=== PATIENT | male | born 1975 | race Caucasian/White ===

== ENCOUNTER 2016-12-12 17:53 | Emergency (ER) | payer BC ==
[2016-12-12 18:10] VITALS: TEMP 98.2
--- NOTE | 2016-12-12 19:32 | EDPHY ---
HPI/HX/ROS/PE/MDM Narrative: CHIEF COMPLAINT: Dyspnea HPI: The patient is a 41 y/o male complaining of a resolved episode of dyspnea and throat tightness while hiking today. He flew into [place] from [place] today and subsequently went hiking. Part way into his hike his "airway felt restricted." He tried to keep hiking, but his symptoms worsened and forced him to sit down. He felt like his throat was tight and he was unable to catch his breath. He denies any associated chest pain or other symptoms. All his symptoms resolved with rest and he feels normal upon assessment here. He has no prior history of asthma or blood clots, but does fly frequently for work. REVIEW OF SYSTEMS: Aside from elements discussed in the HPI, a comprehensive 10-point review of systems was reviewed and is negative. PMH: Sinus surgery September 2016 SOCIAL HISTORY: Flies regularly. Employed. Lives in [place]. PHYSICAL EXAM: General:Patient is alert, in no acute distress. ENT:Eyes are normal to inspection. ENT inspection normal. Neck: Normal inspection. Full range of motion. Respiratory:No respiratory distress. Breath sounds normal bilaterally. Cardiovascular: Regular rate and rhythm. Strong peripheral pulses. Normal cap refill. Abdomen:The abdomen is nontender to palpation. There are no peritoneal signs. Back: Normal to inspection. No tenderness to palpation. Skin: Normal color. No rash. Warm and dry. Extremities: Normal appearance. Full range of motion. Neuro: Oriented x3. Normal motor function. Normal sensory function. ED Course: Chest x-ray: negative for acute process. Patient has a normal exam and chest x-ray. He will be discharged with an inhaler and referral to his PCP for follow up upon his return home. MDM: This is a healthy male who reports SOB and wheezing while exercising earlier today. His symptoms have all resolved and there is no objective abnormality on exam whatsoever. He is not hypoxic. I discussed potential etiologies and workup with the patient - he would like to decline further imaging or treatment for now, and will try and an inhaler for what sounds most like exercise-induced asthma. He understands that diagnoses such as PE, ACS are possible and cannot be ruled out without further testing. - Data Points Imaging: Discussed imaging studies w/ call or contact centre manager Radiologist, I viewed and interpreted images myself General Time Seen by Provider: 12/12/16 19:09 Initial Vital Signs: Initial Vital Signs Temperature (C) 36.8 C 12/12/16 18:05 Heart Rate 67 12/12/16 18:05 Respiratory Rate 15 12/12/16 18:05 Blood Pressure 139/89 H 12/12/16 18:05 O2 Sat (%) 96 12/12/16 18:05 O2 Delivery Mode Room Air Allergies/Adverse Reactions: No Known Allergies Allergy (Unverified 12/12/16 18:04) Home Medications: Medication Instructions Recorded Flonase Nasal [place] 12/12/16 Departure - Departure Disposition: Home, Routine, Self-Care Clinical Impression: Dyspnea Condition: Good Instructions: Albuterol (By breathing), Exercise-Induced Bronchoconstriction ( ED), Dyspnea (ED) Additional Instructions: 1. Use inhaler as prescribed if needed for recurrent symptoms. 2. Follow up with your primary care provider upon your return home for recurrent or unimproved symptoms. 3. Return to the ED for chest pain, severe worsening shortness of breath, or other worsening of condition. Referrals: ANTONIO LOVETT [Other] - As per Instructions Report Scribed for: Cb Leung Report Scribed by: Bessy Sorenson Date of Report: 12/12/16 Time of Report: 19:32 Physician Review and Approval Statement: Portions of this note were transcribed by an ED scribe. I personally performed the history, physical exam, and medical decision making; and confirm the accuracy of the information in the transcribed note.
[2016-12-12] MEDS ORDERED: ALBUTEROL INH PREPACK MDI TAKEHOME ONE (20:08)
[2016-12-12 20:31] VITALS: BP 136/95; PULSE 60; RESP 16; O2SAT 95
== END 2016-12-12 20:31 | disposition home or self-care (01) ==
DX: R06.00 Dyspnea, unspecified (principal)